=== PATIENT | male | born 1995 | race Caucasian/White ===

== ENCOUNTER 2017-06-02 09:13 | Emergency (ER) | payer SELFPAY ==
[~2017-06-02] VITALS: Ht 167.6 cm; Wt 48.0 kg
[2017-06-02 09:17] VITALS: BP 123/72; PULSE 71; RESP 12; TEMP 99.4; O2SAT 97
[2017-06-02] MEDS ORDERED: traMADol HCL 50 MG TAB PO ONE (10:00)
--- NOTE | 2017-06-02 10:00 | PD ---
HPI Chief Complaint: Flank/Kidney Pain Time Seen by Provider: 10:00 Travel History International Travel<30 days: No Contact w/Intl Traveler<30days: No Traveled to known affect area: No History of Present Illness HPI Patient is a 21-year-old male presents emergency Department with this partner for evaluation of left-sided low back pain. He is also been having aches and pains in all his joints. Complains of low blood sugar in the morning and nausea vomiting early in the morning. His partner had also requested from nursing that the patient have his cervix checked for HPV. Patient states all his symptoms been going on for several months, his partner convinced him to come in and be seen to make sure wasn't anything serious. Symptoms are mild gradually worsening. No fever no shortness of breath no cough no congestion. PFSH Past Medical History Gastrointestinal Disorders: Yes (colitis, gastritis) Past Surgical History Surgical History: No Previous Surgery Social History Alcohol Use: No Tobacco Use: Yes (1 ppd) Substance Use: No Allergies-Medications (Allergen,Severity, Reaction): Coded Allergies: No Known Allergies (Unverified , 06/02/17) Review of Systems Except as stated in HPI: all other systems reviewed are Neg Physical Exam Narrative GENERAL: Well-developed well-nourished, thin but in no distress. SKIN: Focused skin assessment warm/dry. No rash no wound. HEAD: Atraumatic. Normocephalic. EYES: Pupils equal and round. No scleral icterus. No injection or drainage. ENT: No nasal bleeding or discharge. Mucous membranes pink and moist. NECK: Trachea midline. No JVD. CARDIOVASCULAR: Regular rate and rhythm. No murmur appreciated. RESPIRATORY: No accessory muscle use. Clear to auscultation. Breath sounds equal bilaterally. GASTROINTESTINAL: Abdomen soft, non-tender, nondistended. Hepatic and splenic margins not palpable. MUSCULOSKELETAL: No obvious deformities. No clubbing. No cyanosis. No edema. No midline CT or L-spine tenderness, no CVA tenderness. NEUROLOGICAL: Awake and alert. No obvious cranial nerve deficits. Motor grossly within normal limits. Normal speech. PSYCHIATRIC: Appropriate mood and affect; insight and judgment normal. Data Data Last Documented VS Vital Signs Date Time Temp Pulse Resp B/P (MAP) Pulse Ox O2 Delivery O2 Flow Rate FiO2 06/02/17 11:17 06/02/17 09:17 99.4 71 12 97 Orders Orders Urinalysis - C+S If Indicated (06/02/17 09:30) Bedside Glucose ANTONINO.CSUGAR (06/02/17 09:30) Tramadol (Ultram) (06/02/17 10:00) Spine, Lumbar - Ltd (Ap & Lat) (06/02/17 ) Labs Laboratory Tests Test 06/02/17 09:54 Urine Color YELLOW Urine Turbidity CLEAR Urine pH 5.5 Urine Specific [place] 1.026 Urine Protein TRACE mg/dL Urine Glucose (UA) NEG mg/dL Urine Ketones NEG mg/dL Urine Occult Blood NEG Urine Nitrite NEG Urine Bilirubin NEG Urine Urobilinogen 2.0 MG/DL Urine Leukocyte Esterase NEG Urine RBC 1 /hpf Urine WBC 2 /hpf Urine Squamous Epithelial Cells <1 /hpf Urine Mucus FEW /lpf Microscopic Urinalysis Comment CULT NOT INDICATED MDM Medical Decision Making Medical Screen Exam Complete: Yes Emergency Medical Condition: Yes Differential Diagnosis Kidney stone seems unlikely, muscular skeletal pain, arthritis, aches and pains , chronic pain. Narrative Course Patient is a pleasant 21-year-old male presents emergency Department with his partner for evaluation of generalized body aches, no fevers, appears well and actually quite healthy. X-rays obtained of his back which was his chief complaint shows no bony abnormality. Urinalysis showed no hematuria. He's not had any dysuria. Think this time medical emergencies been adequately excluded and recommended that he follow-up with the [facility] or his primary care physician. He stable for discharge. Diagnosis Primary Impression: Low back pain Qualified Codes: M54.5 - Low back pain Referrals: [facility] Additional Instructions: Follow-up with her primary care physician or the [facility]. Take Tylenol 500 mg every 8 hours as needed for pain. Disposition: 01 DISCHARGE HOME Condition: Stable Sha Robertson MD Jun 02, 2017 10:00
[2017-06-02 10:14] LABS: BLOOD, URINE NEG (NEG); COMMENT (UR) CULT NOT INDICATED; CULTURE IF INDICATED CULT NOT INDICATED; GLUCOSE,URINE NEG (NEG); KETONE, URINE NEG (NEG); MUCUS URINE FEW /lpf (OCC); NITRITE,URINE NEG (NEG); PH, URINE 5.5 (5.0-8.5); SQUAMOUS EPITHELIAL CELL URINE <1 /hpf (0-5); URINE COLOR YELLOW (YELLW/STRAW)
--- NOTE | 2017-06-02 11:08 | RADRPT ---
EXAM DATE/TIME: 06/02/2017 10:38 [facility] COMPARISON: No previous studies available for comparison. INDICATIONS : Low back pain for 5 months, denies injury MEDICAL HISTORY : None. SURGICAL HISTORY : None. ENCOUNTER: Initial ACUITY: 4 - 6 months PAIN SCORE: 8/10 LOCATION: Bilateral lower back FINDINGS: Two view examination was performed. There are five non-rib bearing vertebral bodies. The vertebral bodies are in normal alignment without evidence of subluxation or scoliosis. The disc spaces are jori ntained. The pedicles are intact. Bony mineralization is normal. No fracture is identified. CONCLUSION: Normal examination for a patient of this age. Paul Villanueva MD on June 02, 2017 at 11:05 Board Certified Radiologist. This report was verified electronically.
== END 2017-06-02 11:41 | disposition home or self-care (01) ==
LOC: NEPD 09:13
DX: M54.5 Low back pain (principal); F17.200 Nicotine dependence, unspecified, uncomplicated
CPT/HCPCS: 72100; 81001; 99284

== ENCOUNTER 2017-09-25 12:17 | Emergency (ER) | payer BC ==
[~2017-09-25] VITALS: Ht 167.6 cm; Wt 47.4 kg
[2017-09-25 12:24] VITALS: BP 118/59; PULSE 69; RESP 16; TEMP 98.4; O2SAT 98
--- NOTE | 2017-09-25 12:55 | RADRPT ---
EXAM DATE/TIME: 09/25/2017 12:42 [facility] COMPARISON: No previous studies available for comparison. INDICATIONS : Cough. MEDICAL HISTORY : smoker SURGICAL HISTORY : None. ENCOUNTER: Initial ACUITY: 1 week PAIN SCORE: 0/10 LOCATION: Bilateral chest FINDINGS: PA and lateral views of the chest demonstrate the lungs to be symmetrically aerated without evidence of mass, infiltrate or effusion. The cardiomediastinal contours are unremarkable. Osseous structure s are intact. CONCLUSION: 1. No active disease. Paul Villanueva MD on September 25, 2017 at 12:51 Board Certified Radiologist. This report was verified electronically.
[2017-09-25] MEDS ORDERED: PROMSYP3 PO (13:01)
--- NOTE | 2017-09-25 13:01 | PD ---
HPI . Cough Chief Complaint: Cold / Flu Symptoms Time Seen by Provider: 12:32 Travel History International Travel<30 days: No Contact w/Intl Traveler<30days: No Traveled to known affect area: No History of Present Illness HPI Patient presents with a cough for more than a week. It is nonproductive. He has no associated fever. No chest pain or shortness of breath. He states that he has taken NyQuil and DayQuil without relief of his symptoms. He has not noted any exacerbating factors. Symptoms have been consistent for the last week or so. He has no other cold symptoms. [facility] Past Medical History Diminished Hearing: No Gastrointestinal Disorders: Yes (colitis, gastritis) ?: Not Social History Alcohol Use: No Tobacco Use: Yes (1 ppd) Substance Use: No Allergies-Medications (Allergen,Severity, Reaction): Coded Allergies: No Known Allergies (Verified Adverse Reaction, Unknown, 09/25/17) Reported Meds & Prescriptions Reported Meds & Active Scripts Active No Active Prescriptions or Reported Medications Review of Systems Except as stated in HPI: all other systems reviewed are Neg General / Constitutional: No: Fever, Chills Eyes: No: Drainage, Redness HENT: No: Sore Throat, Rhinorrhea, Congestion Cardiovascular: No: Chest Pain or Discomfort Respiratory: Positive: Cough, No: Shortness of Breath Physical Exam Narrative GENERAL: Awake and alert and in no acute distress. He smells of cigarette smoke. SKIN: Warm and dry. HEAD: Normocephalic/atraumatic. EYES: Pupils are equal. Extraocular movements are intact. ENT: Oropharynx is pink and moist with no erythema, tonsillar enlargement or exudate. NECK: Normal range of motion. Supple. No cervical lymphadenopathy. CARDIOVASCULAR: Regular rate and rhythm. RESPIRATORY: Nonlabored respirations. Lungs are clear and full air movement throughout. MUSCULOSKELETAL: Atraumatic. NEUROLOGICAL: Nonfocal. PSYCHIATRIC: Appropriate mood and affect. Data Data Last Documented VS Vital Signs Date Time Temp Pulse Resp B/P (MAP) Pulse Ox O2 Delivery O2 Flow Rate FiO2 09/25/17 12:24 98.4 69 16 118/59 (78) 98 Orders Orders Chest, Pa & Lat (09/25/17 12:37) MDM Medical Decision Making Medical Screen Exam Complete: Yes Emergency Medical Condition: Yes Differential Diagnosis Differential diagnosis includes but is not limited to viral respiratory illness , bronchitis, pneumonia, allergies, CHF, asthma/COPD. Narrative Course Patient presents with the chief complaint of a cough which is been ongoing for over a week. There is no change in the character of the cough. He has no concerning symptoms such as shortness of breath, chest pain or sputum production. CXR>>Patient presents with the chief complaint of a cough which is been ongoing for over a week. There is no change in the character of the cough. He has no concerning symptoms such as shortness of breath, chest pain or sputum production. The chest x-ray was independently viewed by me. The history, exam, diagnostic testing, and current condition do not suggest any significant pathology to warrant further testing, continued ED treatment, admission, or surgical evaluation at this point. No EMC was found. The patient 's condition is stable and appropriate for discharge. Diagnosis Primary Impression: Cough Patient Instructions: Acute Cough (ED), General Instructions Additional Instructions: Do not smoke. Sometimes, and antihistamine helps a cough. Antihistamines include medications such as Ashlee, Zyrtec, Claritin, Benadryl. Delsym is a good [id number] cough syrup. Med/Other Pt SpecificInfo: Prescription(s) given Scripts Dextromethorphan-Promethazine Liq (Promethazine-Dextromethorphan Liq) 6.25-15 Mg /5 Ml Syrp 10 ML PO q6 Y for cough, #120 Prov: Roselyn Waller MD 09/25/17 Disposition: 01 DISCHARGE HOME Condition: Stable Roselyn Waller MD Sep 25, 2017 13:01
== END 2017-09-25 13:27 | disposition home or self-care (01) ==
LOC: PHEFT 12:17
DX: R05 Cough (principal); F17.200 Nicotine dependence, unspecified, uncomplicated; Z87.19 Personal history of other diseases of the digestive system
CPT/HCPCS: 71046; 99283